=== PATIENT | female | born 1995 | race Caucasian/White ===

== ENCOUNTER 2017-08-14 17:45 | Emergency (ER) | payer MEDICAID ==
[~2017-08-14] VITALS: Ht 152.4 cm; Wt 84.0 kg
[2017-08-15 01:01] VITALS: BP 125/66
== END 2017-08-15 01:03 | disposition home or self-care (01) ==
LOC: ER 21:23
DX: J02.8 Acute pharyngitis due to other specified organisms (principal)
CPT/HCPCS: 87070; 87430; 99284